=== PATIENT | female | born 1955 | race Caucasian/White ===

== ENCOUNTER 2017-07-21 11:19 | Emergency (ER) | payer OTHER ==
[~2017-07-21] VITALS: Ht 172.7 cm; Wt 98.0 kg
[2017-07-21 11:21] VITALS: BP 223/102; PULSE 71; RESP 15; TEMP 98.2; O2SAT 97
[2017-07-21] MEDS ORDERED: LEVO50TA4 PO (11:33)
[2017-07-21] MEDS ORDERED: NERVE MED (11:33)
[2017-07-21] MEDS ORDERED: BLADDER MED (11:33)
[2017-07-21] MEDS ORDERED: TETANUS/DIPHTHERIA TOXOID ADULT 0.5 ML VIAL IM ONE (11:45)
[2017-07-21] MEDS ORDERED: LIDOCAINE HCL 1% 50 ML VIAL INFIL ONE (11:45)
--- NOTE | 2017-07-21 11:55 | PD ---
HPI Chief Complaint: Laceration/Skin Injury Time Seen by Provider: 11:32 Travel History International Travel<30 days: No Contact w/Intl Traveler<30days: No Traveled to known affect area: No History of Present Illness HPI 62-year-old female presents to emergency Department with complaint of a laceration to her right hand and abrasions to her right knee after tripping over an uneven sidewalk and falling today. Denies hitting her head or loss of consciousness. Denies neck pain or back pain. Has been ambulatory since after the fall with no change in gait. Denies anticoagulant therapy. Denies chest pain, shortness of breath, abdominal pain, nausea, vomiting. Denies paresthesias sensation, decreased range of motion, decreased strength to the affected extremities. Unknown tetanus status. Has taken ibuprofen this morning for pain. Rates pain 1/10. Describes hand pain as a throbbing and knee pain as a burning sensation. No known relieving factors. Pain is aggravated with palpation. No other medical complaints. No known allergies. Primary care provider is Dr. Heck. History of thyroid disorder and takes Synthroid. No other modifying factors or associated signs and symptoms. PFSH Past Medical History Genitourinary: Yes Medical other: Yes (NERVE PAIN) Thyroid Disease: Yes (HYPO) Tetanus Vaccination: > 5 Years Tubal Ligation: Yes Social History Alcohol Use: Yes (OCC) Tobacco Use: No Substance Use: No Allergies-Medications (Allergen,Severity, Reaction): Coded Allergies: No Known Allergies (Unverified , 07/21/17) Reported Meds & Prescriptions Reported Meds & Active Scripts Active Reported [Bladder Med] [Nerve Med] 40 Mg Levothyroxine (Levothyroxine Sodium) 50 Mcg Tab 50 Mcg PO DAILY Review of Systems Except as stated in HPI: all other systems reviewed are Neg Physical Exam Narrative GENERAL: Well-nourished, well-developed female patient, in no acute distress SKIN: Warm and dry. Approximately 1.5 cm laceration to the palmar aspect of the right hand just below the second finger; bleeding controlled; fingers with full range of motion, sensory intact, good opposition. Right knee abrasion without drainage, erythema, edema. HEAD: Atraumatic. Normocephalic. EYES: Pupils equal and round. No scleral icterus. No injection or drainage. ENT: Mucosa pink and moist. Airway patent. NECK: Trachea midline. CARDIOVASCULAR: Regular rate and rhythm. No murmur appreciated. RESPIRATORY: No accessory muscle use. Sounds clear and equal bilaterally. No retractions or tachypnea. GASTROINTESTINAL: Obese. MUSCULOSKELETAL: Right knee with full range of motion and greater than 90 flexion; joint stable with negative drawer test; without erythema, edema, ecchymosis; without tenderness on palpation; abrasion noted to the anterior aspect. Right lower extremities supple and nontender 2+ pedal pulses and sensory intact without erythema or edema. No obvious deformities. No clubbing. No cyanosis. No edema. NEUROLOGICAL: Awake and alert. Oriented 3. No obvious cranial nerve deficits. Motor grossly within normal limits. Normal speech. PSYCHIATRIC: Appropriate mood and affect; insight and judgment normal. Data Data Last Documented VS Vital Signs Date Time Temp Pulse Resp B/P (MAP) Pulse Ox O2 Delivery O2 Flow Rate FiO2 07/21/17 12:42 07/21/17 11:21 98.2 71 15 97 Orders Orders Wound Care (07/21/17 11:45) Tetanus/Diphtheria Tox Adult (Tetanus/Di (07/21/17 11:45) Lidocaine 1% Inj (50 Ml) (Xylocaine 1% I (07/21/17 11:45) Ed Discharge Order (07/21/17 12:36) Wound Care (07/21/17 12:36) MDM Medical Decision Making Medical Screen Exam Complete: Yes Emergency Medical Condition: Yes Medical Record Reviewed: Yes Differential Diagnosis Fall, laceration, abrasion Narrative Course 62-year-old female with laceration to the right hand and abrasion to the right knee. Tetanus updated in the ER. I offered to x-ray the right hand and knee and patient declined stating she doesn't think they are fractured. See my Procedure note laceration repair. I offered the patient pain medication and she declined. Wound care provided to right knee abrasion. Instructed patient to return to the emergency department or follow-up with primary care provider in 7-10 days for suture removal. Instructed patient to follow up with primary care provider. Patient verbalizes understanding and agreement with treatment plan. Patient is medically cleared and stable for discharge. Discussed reasons to return to the emergency department. Patient agrees with treatment plan. The patients vital signs are stable and the patient is stable for outpatient follow-up and treatment. Patient discharged home, stable and in no acute distress. Procedures Procedure Narrative LACERATION LOCATION: Palmar aspect of right hand just below the second finger LENGTH: 1.5 cm NUMBER OF STITCHES/PARVIZ: 4 simple interrupted sutures REPAIR: The area of the laceration was prepped with Betadine and sterilely draped. The laceration was infiltrated with Percent lidocaine. The wound was copiously irrigated and explored without evidence of foreign body, tendon injury or neurovascular injury. The wound was closed using 4-0 Prolene. This was a single layer repair. A sterile dressing was applied. The patient was advised to keep the dressing clean and dry. Patient tolerated the procedure well. Diagnosis Primary Impression: Fall Qualified Codes: W19.XXXA - Unspecified fall, initial encounter Additional Impressions: Laceration of right hand Qualified Codes: S61.411A - Laceration without foreign body of right hand, initial encounter Abrasion, right knee, initial encounter Referrals: Primary Care Physician Patient Instructions: Abrasion (ED), Care For Your Stitches (ED), Fall Prevention (ED), General Instructions, Laceration (ED) Additional Instructions: Keep area clean and dry Limit right hand activity to decrease risk of sutures coming Ibuprofen or Tylenol as directed and as needed for pain and inflammation Ice pack to area as needed to decrease pain Return to the emergency department or follow-up with primary care provider in 7- 10 days for suture removal Follow up with primary care provider Return to the emergency department immediately with worsening of symptoms, particularly if reddened streaks up or down the affected extremity from the suture site, fever, numbness/tingling in the affected extremity, loss of sensation in the affected extremity, severe swelling of the affected Med/Other Pt SpecificInfo: No Change to Meds, No Meds Exist/No RX given Disposition: 01 DISCHARGE HOME Condition: Stable GeraldineCandy MEDEROSP Jul 21, 2017 11:55
== END 2017-07-21 12:56 | disposition home or self-care (01) ==
LOC: NEPD 11:19
DX: S61.411A Laceration without foreign body of right hand, initial encounter (principal); S80.211A Abrasion, right knee, initial encounter; E07.9 Disorder of thyroid, unspecified; W01.0XXA Fall on same level from slipping, tripping and stumbling without subsequent striking against object, initial encounter; Y92.480 Sidewalk as the place of occurrence of the external cause; Z23 Encounter for immunization
CPT/HCPCS: 12001; 90471; 90714